=== PATIENT | male | born 1950 | race American Indian/Alaskan Native ===

== ENCOUNTER 2018-12-08 10:57 | Outpatient (CLI) | payer MEDICARE ==
--- NOTE | 2018-12-08 12:05 | XRay Report ---
LEFT KNEE, 3 views: History: Knee pain. Findings: Normal bone mineralization. Moderate tricompartmental osteoarthritic changes are identified throughout the left knee. No evidence for fracture, bone lesion or large joint effusion. The soft tissues are unremarkable. IMPRESSION: Osteoarthritis.
--- NOTE | 2018-12-08 12:06 | XRay Report ---
AP AND LATERAL CERVICAL SPINE: History: Pain. Normal bone mineralization. Moderate disc space narrowing and marginal spurring is identified at C3-4, C4-5 and C5-6. The remaining levels demonstrate mild disc space narrowing. The facet joints are in appropriate. Minimal diffuse facet arthropathy is suspected. No evidence for fracture, malalignment or bony lesion. The prevertebral soft tissues are normal thickness. IMPRESSION: Cervical spondylosis.
== END 2018-12-08 10:58 | disposition home or self-care (01) ==
LOC: XRAY 10:57
PROVIDERS: ATTEND Internal Medicine
DX: M17.12 Unilateral primary osteoarthritis, left knee (principal); M47.892 Other spondylosis, cervical region; M48.02 Spinal stenosis, cervical region
CPT/HCPCS: 72040

== ENCOUNTER 2019-09-29 15:10 | Outpatient (CLI) | payer MEDICARE ==
--- NOTE | 2019-09-29 16:23 | XRay Report ---
BONE SURVEY HISTORY: Monoclonal gammopathy. COMPARISON: None. TECHNIQUE: 17 total views of the axial and central appendicular skeleton obtained. FINDINGS: Skull: No suspicious lytic or sclerotic osseous lesions. Cervical spine: No suspicious lytic or sclerotic osseous lesions. Chest and Ribs: No suspicious lytic or sclerotic osseous lesions. Humeri and femurs: No suspicious lytic or sclerotic osseous lesions. Thoracic and lumbar spine: No suspicious lytic or sclerotic osseous lesions. Pelvis: No suspicious lytic or sclerotic osseous lesions. Additional findings: Mild to moderate diffuse spondylosis in the spine with tiny anterior and lateral osteophytes. Scattered atherosclerotic vascular calcifications. Mild tricompartmental DJD of both kn ees. IMPRESSION: 1. No radiographic evidence of multiple myeloma or osseous metastatic disease. Signer Name: Jonathan Ortiz MD Signed: 09/29/2019 4:19 PM Workstation Name: [id number]
== END 2019-09-29 15:11 | disposition home or self-care (01) ==
LOC: SPVIMAG 15:10
PROVIDERS: ATTEND Internal Medicine Hematology & Oncology
DX: D47.2 Monoclonal gammopathy (principal)
CPT/HCPCS: 77074